=== PATIENT | female | born 1990 | race Caucasian/White ===

== ENCOUNTER 2022-04-30 11:29 | Outpatient (CLI) | payer OTHER, SELFPAY ==
[2022-04-30 12:49] LABS: Thyroid Stimulating Hormone < 0.015 uIU/mL (0.465-4.680)
== END 2022-04-30 11:30 | disposition home or self-care (01) ==
LOC: ANHLAB 11:38
PROVIDERS: PCP Internal Medicine; Visit Provider Internal Medicine
DX: E03.9 Hypothyroidism, unspecified (principal)
CPT/HCPCS: 36415; 84443

== ENCOUNTER 2022-07-29 00:26 | Emergency (ER) | payer OTHER, SELFPAY ==
[2022-07-29] VITALS (10 sets, daily range): BP systolic 97–150; BP diastolic 61–81; PULSE 90–107; RESP 14–22; TEMP 36.6; O2SAT 98–100
--- NOTE | 2022-07-29 02:28 | ED.GENADULT ---
HPI - General Adult General Chief complaint: Upper Respiratory Infection Stated complaint: sore throat Time Seen by Provider: 07/29/22 02:08 History of Present Illness HPI narrative: 31-year-old female presenting to the emergency department for evaluation of sore throat. Patient was complaining of symptoms that started on Thursday. Patient did take a COVID test at home that was negative. Patient had follow-up with her primary care physician and negative strep test. Patient presents to the emergency department complaining of worsening throat pain. Patient denies any difficulty breathing. Patient denies any significant postnasal drip. Patient has tried warm salt water gargles but states the symptoms worsen again. Review of Systems Review of Systems: CONSTITUTIONAL: Denies fever, chills, or sweats. EYES: Denies visual changes, redness, or discharge. ENT: See HPI CARDIOVASCULAR: Denies chest pain, palpitations, or edema. RESPIRATORY: Denies cough or dyspnea. GASTROINTESTINAL: Denies abdominal pain, nausea, vomiting, or diarrhea. GENITOURINARY: Denies dysuria or hematuria. SKIN: Denies rash or itching. MUSCULOSKELETAL: Denies back pain, joint pain, or myalgia. NEUROLOGIC: Denies headache, numbness, or weakness. Exam Narrative: APPEARANCE: Well appearing, no pain, no distress, well-nourished. HEAD: normocephalic, atraumatic. EYES: PERRLA/EOMI, conjunctivae clear. NOSE: Normal no drainage EARS:TMS clear with good light reflex. THROAT: Mild pharynx erythema, no tonsillar exudate. NECK: Supple. No adenopathy, no masses. RESPIRATORY: Airway patent, respirations nonlabored. Clear to auscultation bilaterally, no rales, rhonchi, wheezing. CARDIOVASCULAR: Regular rate and rhythm without murmurs rubs or gallops. ABDOMINAL: Soft, nontender, nondistended, normal bowel sounds MUSCULOSKELETAL: Moves all extremities. Strength/ROM intact, No edema, No calf tenderness. NEURO: Alert. Cranial nerves II through XII intact. Grossly intact SKIN: Warm, dry. Normal Color PSYCHIATRIC: Normal affect/mood. Course Course Emergency Course: Patient's COVID and rapid strep are negative. Treating patient for pharyngitis. Patient was advised to do decongestant but patient was also started on antibiotics Vital Signs Vital signs: Vital Signs Temperature 97.9 F 07/29/22 00:28 Pulse Rate 107 H 07/29/22 00:28 Respiratory Rate 14 07/29/22 00:28 Blood Pressure 150/81 H 07/29/22 00:28 Pulse Oximetry 100 07/29/22 00:28 Oxygen Delivery Room Air 07/29/22 00:28 Temperature 97.9 F 07/29/22 00:28 Pulse Rate 92 07/29/22 03:02 Respiratory Rate 21 H 07/29/22 03:37 Blood Pressure 99/61 L 07/29/22 03:01 Pulse Oximetry 99 07/29/22 03:37 Oxygen Delivery Room Air 07/29/22 02:17 Medical Decision Making Vital Signs Vital Signs: Vital Signs Temperature 97.9 F 07/29/22 00:28 Pulse Rate 107 H 07/29/22 00:28 Respiratory Rate 14 07/29/22 00:28 Blood Pressure 150/81 H 07/29/22 00:28 Pulse Oximetry 100 07/29/22 00:28 Oxygen Delivery Room Air 07/29/22 00:28 Temperature 97.9 F 07/29/22 00:28 Pulse Rate 92 07/29/22 03:02 Respiratory Rate 21 H 07/29/22 03:37 Blood Pressure 99/61 L 07/29/22 03:01 Pulse Oximetry 99 07/29/22 03:37 Oxygen Delivery Room Air 07/29/22 02:17 Lab Data Lab results reviewed: Yes I reviewed the patient's lab results. Labs: Lab Results 07/29/22 Range/Units 02:09 SARS-CoV-2 RNA (RT-PCR) Negative Strep Screen Presumptive Negative *(Reference Range: Negative)* Discharge Plan Discharge Clinical Impression: Pharyngitis Patient Disposition: Home, Self-Care Condition: Stable Additional Instructions: Antibiotic as directed till completed. Warm salt water gargles for comfort. Have close follow-up with your primary care physician. Prescriptions: New amoxicillin-pot clavulanate 875-125 mg
[2022-07-29 02:53] LABS: SARS-CoV-2 RNA PCR Negative
--- NOTE | 2022-07-29 03:04 | PC.NURSE ---
Patient report received from CARMEN Guevara. All questions answered and care of patient assumed. Patient resting quietly in stretcher. NAD. VSS. Awaiting further orders and disposition. Call-light within reach.
== END 2022-07-29 03:55 | disposition home or self-care (01) ==
PROVIDERS: Emergency Provider Emergency Medicine; PCP Internal Medicine
DX: J02.9 Acute pharyngitis, unspecified (principal); Z20.822 Contact with and (suspected) exposure to COVID-19
CPT/HCPCS: 87081; 87880; 99283; C9803; U0003; U0005

== ENCOUNTER 2023-01-09 12:27 | Emergency (ER) | payer OTHER, SELFPAY ==
[2023-01-09] VITALS (36 sets, daily range): BP systolic 94–153; BP diastolic 54–86; PULSE 77–118; RESP 12–20; TEMP 36.6; O2SAT 98–100
--- NOTE | ~2023-01-09 | US_ITS ---
EXAMINATION: US OB <=14 wk fetus w TV DATE: 01/09/2023 13:41 INDICATION: Left pelvic pain. TECHNIQUE: Real-time transabdominal and transvaginal pelvic ultrasound was performed. COMPARISON: None. FINDINGS: TRANSABDOMINAL ULTRASOUND: The uterus measures 9.0 x 4.8 x 6.6 cm. TRANSVAGINAL ULTRASOUND: There is no visible intrauterine gestational sac. The endometrial complex me asures 10 mm in thickness. The right ovary measures 3.1 x 1.9 x 1.3 cm. The left ovary measures 3.5 x 2.1 x 2.0 cm. There is normal vascular flow in the ovaries. There is trace free fluid in the pelvis. IMPRESSION: 1. No visible intrauterine gestational sac, which may be normal in early . Spontaneous abor tion and ectopic are not excluded. Serial beta hCGs are recommended. Reviewed, dictated and finalized at location A. [employer] MUS[employer] PROFESSOR IMPRESSION: 1. No visible intrauterine gestational sac, which may be normal in early pregn shanta. Spontaneous and ectopic are not excluded. Serial beta hCGs are recommended.
[2023-01-09 13:02] LABS: Basophils Percent Auto 0.3 % (0.2-1.2); Eosinophils Absolute Auto 0.1 K/mm3 (0-0.3); Eosinophils Percent Auto 0.5 % (0-4.4); Hematocrit 41.4 % (37.0-47.0); Hemoglobin 13.5 g/dL (12.0-15.0); Immature Granulocyte Absolute 0.04 K/mm3 (0.00-0.031); Immature Granulocyte Percent A 0.4 % (0-0.5); Lymphocytes Absolute Auto 2.34 K/mm3 (0.9-3.2); Lymphocytes Percent Auto 24.2 % (18.3-44.2); Mean Corpuscular HGB Conc 32.6 g/dl (32-36); Mean Corpuscular Hemoglobin 28.9 pg (26-34); Mean Corpuscular Volume 88.7 fl (80-100); Mean Platelet Volume 9.2 fl (7.4-10.4); Monocytes Absolute Auto 0.7 K/mm3 (0.1-0.6); Monocytes Percent Auto 7.1 % (2.6-8.5); Neutrophils Absolute Auto 6.5 K/mm3 (1.3-6.7); Neutrophils Percent Auto 67.5 % (45.5-73.1); Platelet Count Result 297 k/mm3 (150-375); Red Blood Count 4.67 M/mm3 (4.2-5.4); Red Cell Distribution Width 13.1 % (11.5-14.5); White Blood Count 9.7 K/mm3 (4.5-10.0)
[2023-01-09 13:26] LABS: Alanine Aminotransferase 27 U/L (6-35); Albumin Level 4.7 g/dL (3.5-5.1); Alkaline Phosphatase 60 U/L (38-126); Anion Gap 8 mmol/L (8-16); Aspartate Amino Transferase 26 U/L (14-36); Bilirubin,Total 0.5 mg/dL (0.2-1.3); Blood Urea Nitrogen 7 mg/dL (7-17); Calcium 9.1 mg/dL (8.4-10.2); Carbon Dioxide 26 mmol/L (22-30); Chloride 101 mmol/L (98-107); Estimated Glomerular Filt Rate > 60; Glucose 121 mg/dL (65-110); Lipase 35 U/L (23-300); Sodium 135 mmol/L (137-145)
--- NOTE | 2023-01-09 14:06 | ED.ABDPAIN ---
HPI - Abdominal Pain General Chief Complaint: Abdominal Pain Stated Complaint: abd pain Time Seen by Provider: 01/09/23 12:53 History of Present Illness HPI narrative: Patient is a 32-year-old G4, P1 presenting with abdominal pain. Patient states that her last menstrual period was November 30. She had a positive test approximately 6 days ago. Yesterday she developed severe left lower quadrant pain that radiates into her back. This continued through today so she came in for evaluation. She reports a history of an ectopic back in October. This was medically terminated. Patient states that her current is desired. She denies vaginal bleeding. She denies nausea or vomiting, lightheadedness, chest pain, shortness of breath. She does report chronic constipation. States she had a bowel movement yesterday. Related Data Allergies Allergy/AdvReac Type Severity Reaction Status Date / Time Penicillins Allergy Unknown Verified 01/09/23 14:17 Review of Systems Review of Systems: All systems reviewed & are unremarkable except as noted in HPI and below Exam Narrative: GENERAL: Mildly distressed, intermittently tearful HEAD: Normocephalic, atraumatic. EYES: PERRLA and EOMI. ENT: Nares clear, no rhinorrhea or epistaxis. Mucous membranes moist. NECK: Supple. CHEST: Clear to auscultation. No respiratory distress. HEART: Regular rate and rhythm ABDOMEN: Soft, tender in left lower quadrant with voluntary guarding, no rebound EXTREMITIES: Normal range of motion. No edema. SKIN: Warm, dry, no rash. NEURO: No focal deficits. Alert and oriented x3. PSYCH: Intermittently tearful Course Vital Signs Vital signs: Vital Signs Temperature 98 F 01/09/23 12:32 Pulse Rate 118 H 01/09/23 12:32 Respiratory Rate 20 01/09/23 12:32 Blood Pressure 153/86 H 01/09/23 12:32 Pulse Oximetry 100 01/09/23 12:32 Oxygen Delivery Room Air 01/09/23 12:32 Temperature 98 F 01/09/23 12:32 Pulse Rate 92 01/09/23 18:46 Respiratory Rate 17 01/09/23 18:46 Blood Pressure 104/54 L 01/09/23 18:16 Pulse Oximetry 98 01/09/23 15:22 Oxygen Delivery Room Air 01/09/23 12:32 MDM - Abdominal Pain MDM Narrative Medical decision making narrative: 32-year-old female G4, P1 presenting with left lower quadrant pain in the setting of early . Patient is a bit tachycardic, otherwise vitals are within normal limits. Exam is remarkable for the above. Urine is positive. Beta hCG 1700. Pelvic ultrasound obtained which does not show a definitive gestational sac in the uterus. Spontaneous and ectopic cannot be ruled out. Spoke with our OB who states that patient is going to need a repeat beta-hCG and ultrasound on Thursday. Unfortunately, we cannot rule out an ectopic as the is so early. Patient is calling her OB right now to speak with them about close follow-up. After several hours, patient was reevaluated and she is resting comfortably. She states that her pain is significantly improved. She is tolerating p.o. intake. States that she was able to get a hold of her OB and they have an appointment for her on Thursday. Advised Tylenol for pain control. Very strict return precautions were given regarding worsening of pain, vaginal bleeding, lightheadedness or syncope. Patient and her voiced understanding and are agreeable with plan. Discharged in stable condition. Differential Diagnosis Differential diagnosis: Likely abdominal pain, constipation and other (first trimester , ectopic ) Lab Data 01/09/23 12:49 01/09/23 12:49 Labs: Lab Results 01/09/23 01/09/23 01/09/23 Range/Units 12:49 12:49 12:49 WBC 9.7 (4.5-10.0) K/mm3 RBC 4.67 (4.2-5.4) M/mm3 Hgb 13.5 (12.0-15.0) g/dL Hct 41.4 (37.0-47.0) % MCV 88.7 (80-100) fl MCH 28.9 (26-34) pg MCHC 32.6 (32-36) g/dl RDW 13.1
[2023-01-09] MEDS: SODIUM CHLORIDE 0.9% IV 1,000 ML 999 ML IV CONT (14:17)
[2023-01-09 14:43] LABS: Appearance Urine Clear (Clear); Bacteria Urine None Seen /hpf; Bilirubin Urine Negative (Negative); Blood Urine Negative (Negative); Color Urine Yellow (Yellow); Glucose Urine UA Negative (Negative); Ketones Urine Negative (Negative); Leukocyte Esterase Ur Trace LEU/UL (Negative); Nitrate Urine Negative (Negative); Non Pathogenic Casts 0-2; Protein Urine Negative (Negative); RBC Urine 0-2 /hpf (0-2); Specific Grav Ur 1.009 (1.001-1.035); Squamous Epithelial Cell Urine None seen /hpf (Few); Urobilinogen Urine 0.2 mg/dL (<2.0); WBC Urine 0-5 /hpf
[2023-01-09 15:01] LABS: Add Urine Microscopic? YES
[2023-01-09] MEDS: HYDROmorphone HCL INJ (*CRX) 1 MG/ML SYR 0.5 MG IV PUSH (15:17)
== END 2023-01-09 19:25 | disposition home or self-care (01) ==
PROVIDERS: Emergency Provider Emergency Medicine; PCP Internal Medicine
DX: R10.32 Left lower quadrant pain (principal); O26.90 Pregnancy related conditions, unspecified, unspecified trimester
CPT/HCPCS: 36415; 76801; 76817; 80053; 81001; 83690; 84702; 85025; 96365; 96375; 99284; J0131; J1170; J7030

== ENCOUNTER 2024-01-12 07:57 | Outpatient (CLI) | payer OTHER, SELFPAY ==
[2024-01-12 09:31] LABS: Alanine Aminotransferase 25 U/L (6-35); Albumin Level 4.4 g/dL (3.5-5.1); Alkaline Phosphatase 52 U/L (38-126); Anion Gap 7 mmol/L (8-16); Aspartate Amino Transferase 32 U/L (14-36); Bilirubin,Total 0.6 mg/dL (0.2-1.3); Blood Urea Nitrogen 15 mg/dL (7-17); Calcium 9.4 mg/dL (8.4-10.2); Carbon Dioxide 27 mmol/L (22-30); Chloride 104 mmol/L (98-107); Cholesterol 218 mg/dL (0-200); Estimated Glomerular Filt Rate > 60; Glucose 92 mg/dL (65-110); HDL Direct 65 mg/dL; Potassium 3.9 mmol/L (3.4-5.0); Sodium 138 mmol/L (137-145); Triglycerides 68 mg/dL (<150)
[2024-01-12 09:43] LABS: LDL Cholesterol Direct 129 mg/dL
[2024-01-12 10:03] LABS: Thyroid Stimulating Hormone 0.073 uIU/mL (0.465-4.680)
[2024-01-15 07:11] LABS: Triiodothyronine T3 Free 3.2 pg/mL (2.3-4.2)
== END 2024-01-12 07:58 | disposition home or self-care (01) ==
PROVIDERS: PCP Internal Medicine; Visit Provider Internal Medicine
DX: E03.9 Hypothyroidism, unspecified (principal); E78.5 Hyperlipidemia, unspecified
CPT/HCPCS: 36415; 80053; 80061; 84443; 84481

== ENCOUNTER 2025-08-04 07:44 | Outpatient (CLI) | payer OTHER, SELFPAY ==
--- OUTSIDE RECORDS SUMMARY | 2025-08-04 07:50 | XMS_ITS | Encounter Summary ---
Author Organization [facility] Facility Care Team Providers Care Home And Family Living Professor Name Role Phone No, Physician Primary Care Provider Mckay Melara MD Primary Care Provider [phone] Kay Sprague MD Unavailable [phone] Encounter Details Date Type Department Care Team (Latest Contact Info) Description 10/05/2017 Orders Only [facility] ProviderWong MD [address] [place] [id number] Social History Tobacco Use Types Packs/Day Years Used Date Smoking Tobacco: Never Assessed Comments Unknown Sex and Gender Information Value Date Recorded Sex Assigned at Not on file Legal Sex 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 Historical Provider Final Res ult documented in this encounter Visit Diagnoses Not on filedocumented in this encounter Care Teams Home And Family Living Professor Relationship Specialty Start Date End Date No, Physician PCP - General 03/21/21 04/09/21 Mckay Melara MD PCP - General Internal Medicine 04/10/21 Kay Sprague MD [address] [place] [id number] Consulting Physician Obstetrics and Gynecology 01/14/23 documented as of this encounter
--- OUTSIDE RECORDS SUMMARY | 2025-08-04 07:50 | XMS_ITS | Clinical Summary ---
Author Organization [facility] Address [address] [place] [address] Care Team Providers Care S[employer] Business Objects Consultant Name Role Phone Unavailable Primary Care Provider Unavailabl e Source Comments [facility],non-owned Affiliates and Associated Physician Practices is amultiple site organization consisting of ambulatory clinics and hospital sitesin [place], [place], [place] and [place]. This disclosure is being madepursuant to the Care Everywhere program and may not contain all information available regarding this patient. Last updated 18.[facility] Allergies Active Allergy Reactions Criticality Noted Date Comments Penicillins Unknown Medium 05/18/2018 Medications * Be aware that medications may not be up to date on this document. Alwaysverify current medications with the patient. Vit-Fe Fumarate-FA ( VITAMIN) 28-0.8 MG tablet Take 1 tablet by mouth once daily Active raNITIdine (ZANTAC) 150 MG tablet Take 150 mg by mouth at bedtime Active acetaminophen (TYLENOL) 325 MG tablet Take 325 mg by mouth every 4 hours as needed for Fever or Pain Maximum allowable Acetaminophen amount = 4 Grams (4000 mg) / 24 hours. 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 Thyroid disease during in third trimes ter 06/09/2018 Overview (06/09/2018): Levothyroxine 75 micrograms daily Excessive growth affec ting management of in third trimester 06/09/2018 Gestational diabetes mellitus (GDM) in third tri mester 05/18/2018 Overview (06/30/2018): 3 hour [id number] Plan: Lantus 10 units daily Twice weekly nonstress tests from 36 weeks until delivery Delivery initiation between 39-40 weeks Family History Medical History Relation Name Comments Cancer - Other Maternal Grandfather Diabetes - Type 2 Maternal Grandfather CAD (Coronary Artery Disease) Mother Multiple Births Mother Thyroid Disease Mother Cancer - Breast Paternal Grandmother Cancer - Other Paternal Grandmother Thyroid Disease Sister 1 Thyroid Disease Sister 2 Relation Name Status Comments Maternal Grandfather Maternal Grandmother Mother (Age 42) Paternal Grandfather Paternal Grandmother Brain c ancer Sister 1 Sister 2 Social History Tobacco Use Types Packs/Day Years Used Date Smoking Tobacco: Former Cigarettes Q uit: 11/28/2017 Smokeless Tobacco: Never Tobacco Cessation:Counseling Given: Yes Alcohol Use Standard Drinks/Week Comments No 0 (1 standard drink = 0.6 oz pur e alcohol) AUDIT-C Answer Date Recorded Q1: How often do you have a drink containing alc ohol? Monthly or less 01/20/2022 Q2: How many drinks containi ng alcohol do you have on a typical day when you are drinking? 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 Gender Identity Not on file Sexual Orientation Not on file Last Filed Vital Signs Vital Sign Reading Time Taken Comments Blood Pressure 97/65 01/22/2022 8:32 AM CDT Pulse 71 01/22/2022 8:32 AM CDT Temperature 36.1 C (97 F) 01/22/2022 8:32 AM CDT Respiratory Rate 16 01/22/2022 8:32 AM CDT Oxygen Saturation 100% 01/22/2022 8:32 AM CDT Inhaled Oxygen Concentration - - Weight 61.2 kg (135 lb) 01/20/2022 7:53 AM CDT Height 149.9 cm (4' 11) 01/20/2022 7:53 AM CDT Body Mass Index 27.27 01/20/2022 7:53 AM CDT Plan of Treatment Health Maintenance Due Date Last Done Comments DTAP/TDAP/TD VACCINES (1 - Tdap) 2009 HEPATITIS B VACCINE (1 of 3 - 19+ 3-dose series) 2009 HPV VACCINE (1 - 3-dose SCDM series) 2017 DEPRESSION SCREENING 11/02/2024 COVID-19 VACCINE (1 - 2023-2 5 season) 2025 INFLUENZA VACCINE (#1) 2025 ZOSTER VACCINE (1 of 2) 2040 HEPATITIS C SCREENING Completed 01/21/2022 HIV SCREENING Completed 01/21/2022 HIB VACCINE Aged Out No longer eligi ble based on patient's age to complete this topic MENINGOCOCCAL (Group B) VACC INE SHARED DECISION-MAKING Aged Out No longer eligibl e based on patient's age to complete this topic MENINGOCOCCAL GROUPS A/C/Y/W VACCINE Aged Out No longer eligible b ased on patient's age to complete this topic PNEUMOCOCCAL VACCINE Aged Out No long er eligible based on patient's age to complete this topic Procedures Procedure Name Priority Date/Time Associated Diagnosis Comments HEPATITIS C AB SCREEN RFLX NAAT QUANT STAT 01/21/2022 4:02 AM CDT Paranoia HIV-1 HIV-2 ANTIBODY + HIV P24 AG PANEL STAT 01/21/2022 4:02 AM CDT Paranoia from Last 3 Months or Most Recently Relevant to Health Maintenance Results * HEPATITIS C AB SCREEN RFLX NAAT QUANT (01/21/2022 4:02 AM CDT) Hepatitis C Antibody Non-react johan Non-reac tive 01/21/2022 4:57 AM CDT [facility] Comment:Hepatitis C Antibody screen indicates no serologic evidence of past or current infection with Hepatitis C Virus. Patients with unexplained liver disease who are immunocompromised or suspected of having acute Hepatitis C infection may benefit from Nucleic Acid Test (SHEA) for Hepatitis C Viral RNA to confirm Hepatitis C status. Blood BLOOD SPECIMEN / Unknown Venipuncture / Unknown 01/21/2022 4:02 AM CDT 01/21/2022 4:11 AM CDT us Brando Underwood MD LAB - CHEMISTRY ORDERABLES F inal Result [address] [address], [place] [phone] * HIV-1 HIV-2 ANTIBODY + HIV P24 AG PANEL (01/21/2022 4:02 AM CDT) HIV Antigen/Antibod y 1 & 2 Non-reacti ve Non-react johan 01/21/2022 4:57 AM CDT [facility] Comment:No Laboratory eviden ce of HIV infection. Blood BLOOD SPECIMEN / Unknown Venipuncture / Unknown 01/21/2022 4:02 AM CDT 01/21/2022 4:11 AM CDT Brando Underwood MD LAB - CHEMISTRY ORDERABLES F inal Result Performing Organization Address [facility] Co de Phone Number [address] [address], [place] [phone] from Last 3 Months or Most Recently Relevant to Health Maintenance [facility] [employer] [facility] MEDICAID Advance Directives * Full Code (Latest Code Status on File) Date Activated Date Inactivated Comments 01/20/2022 12:00 PM 01/22/2022 2:39 PM
--- OUTSIDE RECORDS SUMMARY | 2025-08-04 07:51 | XMS_ITS | Clinical Summary ---
Author Organization [facility] Address [address] [place] [address] Care Team Providers Care Manager Placement Name Role Phone Mckay Melara MD Primary Care Provider [phone] Kay Sprague MD Unavailable [phone] Allergies Active Allergy Reactions Criticality Noted Date Comments Penicillins Shortness of breath,Unknown High 05/18/2018 Breathing Difficulty unsure Medications traZODone (DESYREL) 50 mg tablet Take 1 tablet (50 mg total) by mouth nightly as needed for sleep 4 Active ibuprofen (ADVIL,MOTRIN) 600 mg tablet Take 1 tablet (600 mg total) by mouth every 6 (six) hours as needed for pain (pain) 30 tablet 4 Active Additional Information Patient not taking.Reported on 06/20/2024 polyethylene glycol (MIRALAX) 17 gram/dose bulk powder Take 17 g by mouth daily for 14 days 238 g 4 Active oxyCODONE-aceta minophen (PERCOCET) 5-325 mg per tabletIndicatio ns:Pain Take 1 tablet by mouth every 4 (four) hours as needed for pain 10 tablet 4 Active Additional Information Patient not taking.Reported on 06/20/2024 levothyroxine (SYNTHROID) 88 mcg tablet TAKE 1 TABLET BY MOUTH EVERY MORNING BEFORE BREAKFAST 30 tablet 2 4 Active Active Problems Problem Noted Date Diagnosed Date Ectopic 06/10/2024 Infertility management 03/04/2024 Irritable bowel syndrome 01/20/2023 Low serum vitamin B12 01/20/2023 of unknown anatomic location 3 Overview (01/14/2023): Added automatically from request for surgery [id number] Abdominal pain 01/13/2023 Overview (01/14/2023): Added automatically from request for surgery [id number] Ectopic of right ovary 10/15/2022 Hyperlipidemia 05/06/2022 Anxiety 02/14/2022 Depressive disorder 01/27/2022 Other specified hypothyroidism 01/20/2022 Paranoia 01/20/2022 Well woman exam 04/10/2021 Thyroid disease during in third trimes ter 06/09/2018 Overview (10/07/2022): Levothyroxine 75 micrograms daily Gestational diabetes mellitus (GDM) in third tri mester 05/18/2018 Overview (10/07/2022): 3 hour GTT-74/184/172/134 Plan: Lantus 10 units daily Twice weekly nonstress tests from 36 weeks until delivery Delivery initiation between 39-40 weeks Immunizations Immunization Administration Dates Next Due DTaP 07/08/2018 Surgical History Surgery Date Site/Laterality Comments SALPINGECTOMY Left ECTOPIC Medical History Medical History Date Comments Ectopic of right ovary Family History Medical History Relation Name Comments Breast cancer Paternal Grandfather Colon cancer Neg Hx Ovarian cancer Neg Hx Pancreatic cancer Neg Hx Prostate cancer Neg Hx Uterine cancer Neg Hx Relation Name Status Comments Paternal Grandfather Social History Tobacco Use Types Packs/Day Years Used Date Smoking Tobacco: Former Tobacco Cessation:Counseling Given: Not Answered Personal Safety Answer Date Recorded Have you ever been in or are you currently in a harmful physical or emotional relationship or is someone making you feel afraid or unsafe? Denies 06/10/2024 Comments No Sex and Gender Information Value Date Recorded Sex Assigned at Not on file Legal Sex Female 11:33 AM COACH Gender Identity Not on file Sexual Orientation Not on file Obstetrics History Para Term AB IAB SAB Ectopic Multiple Livin g Live Births 4 1 1 1 1 1 Date Outcome GA Total Labor Labor/2nd/3rd Weight Sex Type Anes PTL Shawanda A1 A5 Name Clin 7 SAB 2017 Term 39w0 d Vag-Sp ont Last Filed Vital Signs Vital Sign Reading Time Taken Comments Blood Pressure 102/60 06/20/2024 1:07 PM CDT Pulse 65 06/10/2024 9:30 PM CDT Temperature 36.9 C (98.4 F) 06/10/2024 9:00 PM CDT Respiratory Rate 19 06/10/2024 9:30 PM CDT Oxygen Saturation 96% 06/10/2024 9:30 PM CDT Inhaled Oxygen Concentration - - Weight 63 kg (139 lb) 06/20/2024 1:07 PM CDT Height 149.9 cm (4' 11) 06/20/2024 1:07 PM CDT Body Mass Index 28.07 06/20/2024 1:07 PM CDT Plan of Treatment Health Maintenance Due Date Last Done Comments Albumin Creatinine Ratio, Urine 1990 Breast Cancer Screening-Mammogram 1990 Depression Screening 1990 Dilated Eye Exam 1990 Foot Exam 1990 Varicella Vaccines (1 of 2 - 13+ 2-dose series) 2003 Hepatitis B Screening 2008 Pneumococcal vaccine <65 (1 of 2 - PCV) 2009 HPV Vaccines (1 - 3-dose SCD M series) 2017 Cervical Cancer Screening 12/02/2018 12/02/2017 Regular Well Visit/Exam 18-64 04/10/2022 04/10/2021 Lipid Panel 01/21/2023 01/21/2022 Hemoglobin A1C 09/02/2024 03/02/2024, 11/09/2017 eGFR 06/10/2025 06/10/2024, 08/0 12/2023, 03/02/2024, Additional history exists Influenza Vaccine (#1) 2025 DTaP/Tdap/Td Vaccine (2 - Tdap) 07/08/2028 8 Hepatitis C Screening Completed 11/09/2017 Procedures Procedure Name Priority Date/Time Associated Diagnosis Comments EGFR STAT 06/10/2024 12:55 PM CDT HEMOGLOBIN A1C Routine 03/02/2024 3:16 PM CDT Infertility management THINPREP TIS PAP REFLEX HPV MRNA E6/E7, CHLAMYDIA/N.GONORRHO EAE Routine 12/02/2017 3:16 PM COACH HEPATITIS C ANTIBODY Routine 11/09/2017 2:36 PM COACH from Last 3 Months or Most Recently Relevant to Health Maintenance Results * eGFR (06/10/2024 12:55 PM CDT) eGFR >90 >=60 mL/min/1. 73 m2 Comment: Interpretive Data Reference Interval Normal >/= 90 mL/min/1.73m2 Mildly decreased* 60 - 89 mL/min/1.73m2 Mildly to moderately decreased 45 - 59 mL/min/1.73m2 Moderately to severely decreased 30 - 44 mL/min/1.73m2 Severely decreased 15 - 29 mL/min/1.73m2 Kidney Failure < 15 mL/min/1.73m2 *Relative to young adult level Estimated glomerular filtration rate is determined by the 2020 CKD-EPI equation recommended by the National Kidney Foundation (A Unifying Approach to GFR Estimation: Recommendations of the NKF-ASK Task Force on Reassessing the Inclusion of Race in Diagnosing Kidney Disease, JASN 2020). The CKD-EPI equation should not be used for patients with unstable renal function and has not been validated in children and those over 70. Current interpretive data was last reviewed 2021. Testing performed by: [facility], [address] [place] [address]., [address] Blood 06/10/2024 12:5 5 PM CDT 06/10/2024 1:13 PM CDT us Ivelisse ALVARADO LAB BLOOD ORDERABLES F inal Result AYESHA [address] [facility] Department [place] [address] * Hemoglobin A1c (03/02/2024 3:16 PM CDT) Hgb A1C 5.5 4.0 - 5.6 % Comment:Testing performed by : [address] [address] Estimated Average Glucose 111 mg/dL AYESHA GUSTAFSON Comment: The ADA recommends reporting an estimated Average Glucose (eAG) with all Hemoglobin A1c results using the equation derived from a study of 507 normal and diabetic adults. Minority populations were underrepresented and children were not included. (Diabetes Care 31:0148-4508, 2008). The eAG is not equivalent to a fasting glucose. Testing performed by: [address] [address] Blood 03/02/2024 3:16 PM CDT 03/02/2024 4:32 PM CDT us Luigi Ya MD LAB BLOOD ORDERABLES Fin al Result AYESHA [address] [facility] Department [place] [address] * THINPREP TIS PAP REFLEX HPV mRNA E6/E7, CHLAMYDIA/N.GONORRHOEAE (12/02/2017 3:16 PM COACH) CLINICAL INFORMATION [facility] Comment:Information not prov ided LMP: INFORMATION NOT PROVIDED [facility] PREV. PAP: [facility] Comment:INFORMATION NOT PROV IDED PREV. BX: [facility] Comment:INFORMATION NOT PROV IDED SOURCE: [facility]ULTS Comment:Information not prov ided STATEMENT OF ADEQUACY: [facility] Comment:Satisfactory for rachel luation. Endocervical/transformation zone component present. Age and/or menstrual status not provided INTERPRETATION/RES ULT: [facility] RESULTS Comment:Negative for intraep ithelial lesion or malignancy. COMMENT: [facility] Comment:This Pap test has be en evaluated with computer assisted technology. BULLION WEIGHER: [facility] HISTORICAL RESULTS Comment:ABC, CT(ASCP) CT scr eening location: [place] [address] [place] [address] C. trachomatis RNA NOT DETECTED NOT DETECTED [facility] N. gonorrhoeae RNA NOT DETECTED NOT DETECTED [facility] COMMENT [facility] Comment: This test was performed using the APTIMA COMBO2 Assay ([employer] The analytical performance characteristics of this assay, when used to test SurePath specimens have been determined by [employer]. 12/02/2017 3:16 PM COACH 12/08/2017 4:35 PM COACH Narrative [facility] HISTORICAL RESULTS - 12/08/2017 4:13 PM COACH 0 PERFORMING LAB: , [facility] [address] [address] [facility] [address] Bebe Dominguez MD Real Flores MD LAB PATHOLOGY ORDERABLES F inal Result Performing Organization Address [facility] Co de Phone Number [facility] HISTORICAL RESULTS * Hepatitis C antibody (11/09/2017 2:36 PM COACH) Hep C Ab NONREACT NONREACTIVE Comment: Siemens TrialReachaurXP using RUBIO (chemiluminescent immunoassay) technology. NONREACTIVE: Antibodies to Hepatitis C not detected. This does not exclude early acute Hepatitis C infection, possibility of exposure to Hepatitis C, antibodies below detection limit, or to lack of antibody reactivity to the antigen used in this assay. EQUIVOCAL: Antibodies to Hepatitis C may or may not be present. Sample to be confirmed by real-time PCR method. REACTIVE: Antibodies to Hepatitis C detected. 11/09/2017 2:36 PM COACH 11/09/2017 3:41 PM COACH Narrative [facility] HISTORICAL RESULTS - 11/09/2017 8:05 PM COACH Lorelei Euceda MD LAB MICROBIOLOGY - GEN ERAL ORDERABLES Final Result [facility] HISTORICAL RESULTS from Last 3 Months or Most Recently Relevant to Health Maintenance Insurance [facility] OPEN ACCESS [facility] HEALTHCARE HMO [facility] Advance Directives For more information, please contact: [phone] * Full Code (Latest Code Status on File) Date Activated Date Inactivated Comments 01/14/2023 2:16 AM 01/14/2023 7:20 AM Care Teams Manager Placement Relationship Specialty Start Date End Date Mckay Melara MD PCP - General Internal Medicine 04/10/21 Kay Sprague MD [address] [place] [address] Consulting Physician Obstetrics and Gynecology 01/14/23
--- OUTSIDE RECORDS SUMMARY | 2025-08-04 07:51 | XMS_ITS | Patient Health Record ---
Author Organization [facility] [employer] [facility] Address [address] [place] [address] Care Team Providers Care Battery Test Engineer Name Role Phone Joni Serrano Unavailable [phone] Reason For Referral No Information Medications Medication SIG (Take, Route, Frequency, Duration) Notes Start Date End Date Status Levothyroxine Sodium 125 MCG Tablet Oral 01/05/2023 Active Social History Social History Additional Details Category Social Info Options Details Migrated Social History Migrated Social History Alcohol Intake: Occasional 01/05/2023,Tobacco Years: Former smoker 01/05/2023 Plan Of Treatment No Information Insurance Providers Payer Name Payer Address Payer Phone Subscriber Number Group Number Insured Name Patient Relationship to Insured Coverage Start Date Coverage End Date [employer] [address] [place] [address] [id number] ANASTASIIA GOMEZ Self - patient is the insured
[2025-08-04 08:30] LABS: Hematocrit 41.7 % (37.0-47.0); Hemoglobin 13.5 g/dL (12.0-15.0); Immature Granulocyte Percent A 0.3 % (0-0.5); Lymphocytes Absolute Auto 1.33 K/mm3 (0.9-3.2); Mean Corpuscular HGB Conc 32.4 g/dl (32-36); Mean Corpuscular Hemoglobin 29.3 pg (26-34); Mean Corpuscular Volume 90.7 fl (80-100); Nucleated Red Blood Cells Absolute Auto 0.000 K/mm3 (0.0-0.012); Nucleated Red Blood Cells Perc 0.0 % (0.0-0.2); Platelet Count Result 253 k/mm3 (150-375); Red Blood Count 4.60 M/mm3 (4.2-5.4); White Blood Count 7.0 K/mm3 (4.5-10.0)
[2025-08-04 09:08] LABS: Alanine Aminotransferase 22 U/L (6-35); Albumin Level 4.5 g/dL (3.5-5.1); Alkaline Phosphatase 56 U/L (38-126); Anion Gap 8 mmol/L (4-12); Aspartate Amino Transferase 28 U/L (14-36); Bilirubin,Total 0.8 mg/dL (0.2-1.3); Blood Urea Nitrogen 15 mg/dL (7-17); Calcium 9.2 mg/dL (8.4-10.2); Carbon Dioxide 28 mmol/L (22-30); Chloride 100 mmol/L (98-107); Cholesterol 214 mg/dL (0-200); Estimated Glomerular Filt Rate > 60; Glucose 94 mg/dL (65-110); HDL Direct 62 mg/dL; Potassium 4.2 mmol/L (3.4-5.0); Sodium 136 mmol/L (137-145); Total Protein 7.8 g/dL (6.3-8.2); Triglycerides 79 mg/dL (<150)
[2025-08-04 09:43] LABS: Thyroid Stimulating Hormone 0.130 uIU/mL (0.465-4.680)
[2025-08-04 11:51] LABS: Hemoglobin A1C 5.4 % (<5.7)
[2025-08-05 07:09] LABS: FSH 5.4 mIU/mL (.)
[2025-08-09 01:07] LABS: Free Testosterone (Direct) 1.5 pg/mL (0.0-4.2)
== END 2025-08-04 07:45 | disposition home or self-care (01) ==
LOC: ANHLAB 07:49
PROVIDERS: PCP Family Medicine; Visit Provider Family Medicine
DX: E03.9 Hypothyroidism, unspecified (principal); Z13.1 Encounter for screening for diabetes mellitus; L68.0 Hirsutism
CPT/HCPCS: 36415; 80053; 80061; 83001; 83036; 84146; 84402; 84403; 84443; 85025

== ENCOUNTER 2025-08-28 07:56 | Outpatient (CLI) | payer OTHER, SELFPAY ==
--- OUTSIDE RECORDS SUMMARY | 2025-08-28 08:00 | XMS_ITS | Clinical Summary ---
Author Organization [facility] Address [address] [place] [address] Care Team Providers Care Computer Network Support Specialist Name Role Phone Unavailable Primary Care Provider Unavailabl e Source Comments [facility],non-owned Affiliates and Associated Physician Practices is amultiple site organization consisting of ambulatory clinics and hospital sitesin [place], [place] and [place]. This disclosure is being madepursuant to the Care Everywhere program and may not contain all information available regarding this patient. 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 Comment:Hepatitis C Antibody screen [...] LAB - CHEMISTRY ORDERABLES F inal Result [address] [address], [place] [phone] * HIV-1 HIV-2 ANTIBODY + HIV P24 AG PANEL (01/21/2022 4:02 AM CDT) HIV Antigen/Antibod y 1 & 2 Non-reacti ve Non-react johan 01/21/2022 4:57 AM CDT [facility] Comment:No Laboratory eviden ce of HIV infection. Blood BLOOD SPECIMEN / Unknown Venipuncture / Unknown 01/21/2022 4:02 AM CDT 01/21/2022 4:11 AM CDT Brando Underwood MD LAB - CHEMISTRY ORDERABLES F inal Result Performing Organization Address [facility] Co de Phone Number [address] [address], [place] [phone] from Last 3 Months or Most Recently Relevant to Health Maintenance Insurance [facility], [facility] [employer] HEALTH PLAN [facility] MED[facility] Advance Directives * Full Code (Latest Code Status on File) Date Activated Date Inactivated Comments 01/20/2022 12:00 PM 01/22/2022 2:39 PM
--- OUTSIDE RECORDS SUMMARY | 2025-08-28 08:00 | XMS_ITS | Encounter Summary ---
Author Organization [facility] Care Team Providers Care Package Wrapper Name Role Phone No, Physician Primary Care Provider Mckay Melara MD Primary Care Provider [phone] Kay Sprague MD Unavailable [phone] Encounter Details Date Type Department Care Team (Latest Contact Info) Description 10/05/2017 Orders Only [facility]IN[facility] ProviderWong MD [address] [place] [id number] Social History Tobacco Use Types Packs/Day Years Used Date Smoking Tobacco: Never Assessed Comments Unknown Sex and Gender Information Value Date Recorded Sex Assigned at Not on file Legal Sex Female 11:33 AM [employer] Gender Identity Not on file Sexual Orientation Not on file documented as of this encounter Plan of Treatment Not on file documented as of this encounter Procedures Procedure Name Priority Date/Time Associated Diagnosis Comments SCAN - LABS 10/05/2017 12:00 AM [employer] documented in this encounter Results * SCAN - LABS (10/05/2017 12:00 AM [employer]) Narrative 10/05/2017 12:00 AM [employer] Ordered by an unspecified provider. Historical Provider Final Res ult documented in this encounter Visit Diagnoses Not on filedocumented in this encounter Care Teams Package Wrapper Relationship Specialty Start Date End Date No, Physician PCP - General 03/21/21 04/09/21 Mckay Melara MD PCP - General Internal Medicine 04/10/21 Kay Sprague MD [address] [place] [address] Consulting Physician Obstetrics and Gynecology 01/14/23 documented as of this encounter
--- OUTSIDE RECORDS SUMMARY | 2025-08-28 08:00 | XMS_ITS | Clinical Summary ---
Author Organization [facility] Address [address] [place] [address] Care Team Providers Care Television Audio Engineer Name Role Phone Mckay Melara MD Primary Care Provider [phone] Kay Sprague MD Unavailable [phone] Allergies Active Allergy Reactions Criticality Noted Date [...] (01/14/2023): Added automatically from request for surgery [id number] Abdominal pain 01/13/2023 Overview (01/14/2023): Added automatically from request for surgery [id number] Ectopic of right ovary 10/15/2022 Hyperlipidemia 05/06/2022 [...] on file Legal Sex Female 11:33 AM ENVIRONMENTAL MAINTENANCE WORKER Gender Identity Not on file Sexual Orientation [...] E6/E7, CHLAMYDIA/N.GONORRHO EAE Routine 12/02/2017 3:16 PM ENVIRONMENTAL MAINTENANCE WORKER HEPATITIS C ANTIBODY Routine 11/09/2017 2:36 PM ENVIRONMENTAL MAINTENANCE WORKER from Last 3 Months or Most Recently [...] was last reviewed 2021. Testing performed by: [facility], [address] [place] [address]., [address] Blood 06/10/2024 12:5 5 PM CDT 06/10/2024 1:13 PM CDT us Ivelisse ALVARADO LAB BLOOD ORDERABLES F inal Result AYESHA [address] [facility] Department [place] [address] * Hemoglobin A1c (03/02/2024 3:16 PM CDT) Hgb A1C 5.5 4.0 - 5.6 % Comment:Testing performed by : [address] [address] Estimated Average Glucose 111 mg/dL AYESHA GUSTAFSON Comment: The ADA recommends reporting an estimated Average Glucose (eAG) with all Hemoglobin A1c results using the equation derived from a study of 507 normal and diabetic adults. Minority populations were underrepresented and children were not included. (Diabetes Care 31:9476-7321, 2008). The eAG is not equivalent to a fasting glucose. Testing performed by: [address] [address] Blood 03/02/2024 3:16 PM CDT 03/02/2024 4:32 PM CDT us Luigi Ya MD LAB BLOOD ORDERABLES Fin al Result AYESHA [address] [facility] Department [place] [address] * THINPREP TIS PAP REFLEX HPV mRNA E6/E7, CHLAMYDIA/N.GONORRHOEAE (12/02/2017 3:16 PM ENVIRONMENTAL MAINTENANCE WORKER) CLINICAL INFORMATION [facility]ISTORICAL RESULTS [...] be en evaluated with computer assisted technology. RN PACU: [facility] - [facility] HISTORICAL RESULTS Comment:ABC, CT(ASCP) CT scr eening location: [place] [address] [place] [address] C. trachomatis RNA NOT DETECTED NOT DETECTED [facility] HISTORICAL RESULTS N. gonorrhoeae RNA NOT DETECTED NOT DETECTED [facility] HISTORICAL RESULTS COMMENT [facility] HIST[facility] RESULTS Comment: This test was performed using the APTIMA COMBO2 Assay ([employer] The analytical performance characteristics of this assay, when used to test SurePath specimens have been determined by [employer]. 12/02/2017 3:16 PM ENVIRONMENTAL MAINTENANCE WORKER 12/08/2017 4:35 PM ENVIRONMENTAL MAINTENANCE WORKER Narrative [facility] HISTORICAL RESULTS - 12/08/2017 4:13 PM ENVIRONMENTAL MAINTENANCE WORKER 0 PERFORMING LAB: , [facility] [address] [address] [address] Bebe Dominguez MD Real Flores MD LAB PATHOLOGY ORDERABLES F inal Result Performing Organization Address [facility] Co de Phone Number [facility] HISTORICAL RESULTS * Hepatitis C antibody (11/09/2017 2:36 PM ENVIRONMENTAL MAINTENANCE WORKER) Hep C Ab NONREACT NONREACTIVE 11/09/2017 8:05 PM ENVIRONMENTAL MAINTENANCE WORKER [facility] HISTORICAL RESULTS Comment: Siemens Showcase GigaurXP using RUBIO (chemiluminescent immunoassay) technology. NONREACTIVE: Antibodies [...] to Hepatitis C detected. 11/09/2017 2:36 PM ENVIRONMENTAL MAINTENANCE WORKER 11/09/2017 3:41 PM ENVIRONMENTAL MAINTENANCE WORKER Narrative [facility] HISTORICAL RESULTS - 11/09/2017 8:05 PM ENVIRONMENTAL MAINTENANCE WORKER Lorelei Euceda MD LAB MICROBIOLOGY - GEN ERAL ORDERABLES Final Result [facility] HISTORICAL RESULTS from Last 3 Months or Most Recently Relevant to Health Maintenance Insurance [facility] OPEN ACCESS [facility] HEALTHCARE HMO [facility] Advance Directives For more information, please contact: [phone] * Full Code (Latest Code Status on File) Date Activated Date Inactivated Comments 01/14/2023 2:16 AM 01/14/2023 7:20 AM Care Teams Television Audio Engineer Relationship Specialty Start Date End Date Mckay Melara MD PCP - General Internal Medicine 04/10/21 Kay Sprague MD [address] [place] [address] Consulting Physician Obstetrics and Gynecology 01/14/23
[2025-08-28 09:37] LABS: Thyroid Stimulating Hormone 0.688 uIU/mL (0.465-4.680)
== END 2025-08-28 07:57 | disposition home or self-care (01) ==
LOC: ANHLAB 07:57
PROVIDERS: PCP Family Medicine; Visit Provider Family Medicine
DX: E03.9 Hypothyroidism, unspecified (principal)
CPT/HCPCS: 36415; 84443